=== PATIENT | female | born 1950 | race Caucasian/White ===

== ENCOUNTER → 2017-11-02 | Outpatient (CLI) | payer MEDICARE ==
[~2017-11-02] MED LIST: HCTZ25 PO; LISI-374 PO; LORA-787 PO; OMEP-218 PO; PRE50 PO; TOLT4CAP13 PO
--- NOTE | 2017-11-02 14:37 | RADIOLOGY IMAGING REPORT ---
FACILITY: [facility] PATIENT NAME: Carrie Rojo : 1950 MR: [id number] V: [id number] EXAM DATE: ORDERING PHYSICIAN: HERMELINDO PAREDES TECHNOLOGIST: Location: [facility] [place] Patient: Carrie Rojo : 1950 Visit/Account:[id number] Date of Sevice: 11/02/2017 Exam type: SHOULDER MIN 2 VIEWS RIGHT History: Right shoulder impingement syndrome Comparison: None. Findings: There is moderate to severe joint space narrowing involving the right glenohumeral joint with a large marginal ostomy projecting along the inferior aspect of the right humeral head. Subchondral cystic changes are seen at the right glenoid. There are moderate degenerative changes at the right AC joint . IMPRESSION: 1. Moderate severe osteoarthritic changes involving the right glenohumeral joint Moderate degenerative changes involving the right AC joint Report Dictated By: Simran Salas MD at 11/02/2017 2:32 PM Report E-Signed By: Simran Salas MD at 11/02/2017 2:33 PM WSN:[id number]
== END ==
LOC: RAD 13:43
PROVIDERS: ATTEND Family Medicine
DX: M19.011 Primary osteoarthritis, right shoulder (principal)

== ENCOUNTER → 2017-12-07 | Outpatient (REF) | payer MEDICARE | LOC: ZZSENDIN 10:39 | PROVIDERS: ATTEND Family Medicine | DX: Z01.818 Encounter for other preprocedural examination (principal) | CPT/HCPCS: 81001 ==

== ENCOUNTER 2017-12-28 01:33 | Inpatient (IN) | payer MEDICARE ==
[2017-12-27 15:50] LABS: INR 0.96
[2017-12-28] VITALS (10 sets, daily range): BP systolic 93–141; BP diastolic 50–83
[~2017-12-28] VITALS: Ht 170.2 cm; Wt 82.1 kg
[~2017-12-28 01:33] MED LIST changes: +ASPI81TA94 PO; +GABA-549 PO; +SIMV-49 PO
[2017-12-28] MEDS ORDERED: ONDANSETRON 4 MG/2 ML VIAL ONE (09:52)
[2017-12-28] MEDS ORDERED: DEXAMETHASONE SOD 4 MG/ML VIAL ONE (09:52)
[2017-12-28] MEDS ORDERED: PROPOFOL EMUL(*) 10MG/ML 20 ML 20 ML ONE (09:52)
[2017-12-28] MEDS ORDERED: LIDOCAINE MPF 1% 5 ML VIAL ONE (09:52)
[2017-12-28] MEDS ORDERED: METOCLOPRAMIDE 10 MG/2 ML SDV ONE (09:53)
[2017-12-28] MEDS: NORMOSOL R SOLN(*) 1000 ML BAG 1,000 ML IV PRN ×2 (12:04→14:44)
[2017-12-28] MEDS ORDERED: fentaNYL CITR 250 MCG/5 ML AMP ONE (12:56)
[2017-12-28] MEDS ORDERED: LIDO/EPI 2% MPF 1:200,000 20ML ONE (13:11)
[2017-12-28] MEDS ORDERED: ROPIVACAINE 0.2% 20 ML VIAL ONE (13:11)
[2017-12-28] MEDS ORDERED: BACITRACIN 50000 UNIT/VIAL 100,000 UNIT in NS 0.9% 3000 ML IRRIGATION BAG 3,000 ML IR ONE (14:45)
[2017-12-28] MEDS ORDERED: CLINDAMYCIN(*) 900 MG/NS 50 ML 50 ML IVPB ONE (14:45)
[2017-12-28] MEDS ORDERED: MIDAZOLAM 2 MG/2 ML VIAL IVP ONE (14:45)
[2017-12-28] MEDS ORDERED: LIDOCAINE/SOD BICARB 8.4% SYR ID ONE (14:45)
[2017-12-28] MEDS ORDERED: ROCURONIUM BROM 10 MG/ML 10 ML ONE (14:48)
[2017-12-28] MEDS ORDERED: ePHEDrine 25 MG/5 ML DISP.SYR IVP ONE (16:07)
[2017-12-28] MEDS ORDERED: NS 0.9% IRRIGATION 1000ML PLCT IR ONE (16:13)
[2017-12-28] MEDS ORDERED: SUGAMMADEX SOD 200 MG/2 ML SDV ONE (17:14)
[2017-12-28] MEDS ORDERED: fentaNYL CITR 100 MCG/2 ML AMP ONE ×2 (17:43→18:32)
[2017-12-28] MEDS ORDERED: HYDROmorphone HCL 2 MG/ML SDV IVP PRN (18:20)
[2017-12-28] MEDS ORDERED: PROMETHAZINE 25 MG/ML 1 ML AMP IVP PRN (18:20)
[2017-12-28] MEDS ORDERED: LR 1000 ML BAG 1000 ML IV PRN (18:20)
[2017-12-28] MEDS ORDERED: FLUSH 10 ML SYR IVP PRN (18:20)
[2017-12-28] MEDS ORDERED: diphenhydrAMINE 50 MG/ML VIAL IVP PRN (18:20)
[2017-12-28] MEDS ORDERED: MAGNESIUM CITRATE 300 ML BTL PO PRN (18:20)
[2017-12-28] MEDS ORDERED: MAGNESIUM HYDROXIDE* 30ML UDCP PO PRN (18:20)
[2017-12-28] MEDS ORDERED: diphenhydrAMINE 25 MG CAP PO PRN (18:20)
[2017-12-28] MEDS ORDERED: ZOLPIDEM TARTRATE 5 MG TAB PO PRN (18:20)
[2017-12-28] MEDS ORDERED: ONDANSETRON 4 MG/2 ML VIAL IVP PRN (18:20)
[2017-12-28] MEDS ORDERED: BISACODYL 10 MG SUPP PR PRN (18:20)
[2017-12-28] MEDS ORDERED: GABA-503 PO ×2 (20:12)
[2017-12-28] MEDS ORDERED: LORATADINE 10 MG TAB PO PRN (20:15)
--- NOTE | 2017-12-28 20:20 | Hospitalist Progress Note ---
Subjective Progress Notes Subjective Patient seen post-op. She reports doing well. No CP/SOB/N/V. Reviewed PMHx and medications. Physical Exam Vital Signs Date Time Temp Pulse Resp B/P (MAP) Pulse Ox O2 Delivery O2 Flow Rate FiO2 12/28/17 20:13 90 Room Air 2.5 12/28/17 19:51 98.0 102 18 131/83 (99) Intake and Output 12/29/17 07:00 Intake Total 5400 ml Balance 5400 ml Intake Oral 600 ml IV Total 2450 ml Other 2350 ml # Voids 1 General Appearance: Alert, Awake Cardiovascular: Regular Rate and Rhythm (with soft systolic murmur) Respiratory: Clear to Auscultation Assessment and Plan Problems: (1) S/P shoulder replacement Status: Acute Assessment & Plan: She appears to have done well with OR/anesthesia. As per Dr. Barboza. (2) HTN (hypertension) Status: Chronic Assessment & Plan: Will monitor BPs and resume her lisinopril and HCTZ as needed. At present, her BPs are acceptable. (3) GERD (gastroesophageal reflux disease) Status: Chronic Assessment & Plan: Continue PPI therapy. Exam Sepsis Risk: No Definite Risk KEYLA LINN MD Dec 28, 2017 20:20
[2017-12-28] MEDS: LISINOPRIL 20 MG TAB PO SCH (20:48)
[2017-12-28] MEDS: HYDROCHLOROTHIAZIDE 25 MG TAB PO SCH (20:48)
[2017-12-28] MEDS ORDERED: GABAPENTIN 300 MG CAP PO SCH (21:00)
[2017-12-28] MEDS ORDERED: SIMVASTATIN 20 MG TAB PO SCH (21:00)
--- NOTE | 2017-12-28 22:18 | RADIOLOGY IMAGING REPORT ---
FACILITY: [facility] [place] PATIENT NAME: Carrie Rojo : 1950 MR: [id number] V: [id number] EXAM DATE: ORDERING PHYSICIAN: JEANMARIE PARRY TECHNOLOGIST: Location: [facility] [place] Patient: Carrie Rojo : 1950 Visit/Account:[id number] Date of Sevice: 12/28/2017 ADDENDUM #1 Platelike atelectasis in the right mid to lower lung. Report Dictated By: Darian Holt MD at 12/28/2017 10:16 PM Report E-Signed By: Darian Holt MD at 12/28/2017 10:16 PM ORIGINAL REPORT INDICATION: Postoperative evaluation for right total shoulder arthroplasty. EXAM DATE: 12/28/2017 5:28 PM COMPARISON: 11/02/2017. FINDINGS: Single view of the right shoulder. Mineralization is overall likely normal. No acute alignment abnorm ality or fracture. New right total shoulder arthroplasty. No apparent hardware failure. No acute f racture. Alignment appears grossly normal. Soft tissues are unremarkable. IMPRESSION: Interval right total shoulder arthroplasty with no apparent acute complication. Report Dictated By: Darian Holt MD at 12/28/2017 10:12 PM Report E-Signed By: Darian Holt MD at 12/28/2017 10:15 PM WSN:[id number]
[2017-12-28] MEDS: CLINDAMYCIN 150 MG CAP PO SCH (22:39)
[2017-12-29] VITALS: BP 89/64
--- NOTE | 2017-12-29 04:39 | OPERATIVE REPORT 1 ---
EVENT DATE: December 28, 2017 SURGEON: Mehul Barboza MD ANESTHESIOLOGIST: Dennis Gutierrez MD ANESTHESIA: General LMA. ELECTRIC INSTALLER: ANAND Aguayo PREOPERATIVE DIAGNOSIS Right shoulder osteoarthritis. POSTOPERATIVE DIAGNOSIS Right shoulder osteoarthritis. PROCEDURE PERFORMED Right total shoulder arthroplasty. FINDINGS The patient had a significant amount of arthritic changes associated with the shoulder, but was amenable for a total shoulder replacement. ESTIMATED BLOOD LOSS 150 mL. DRAINS None. COMPLICATIONS None. TOURNIQUET TIME Not applicable. IMPLANTS USED Global Unite standard stem, which was a 10 stem and 10 body, which was press fit , and a 44 x 18 humeral head, and a 44 Fontanelle Peg Global Advantage glenoid. SPECIMENS None. INDICATIONS AND HISTORY This patient is a 67-year-old female that presented to my clinic for evaluation of right shoulder pain and irritation going on for some time. She continued to have pain and irrigation despite conservative management, and so therefore she wanted to go ahead with a total shoulder arthroplasty in the near future. She had failed all conservative management, and so therefore we went over the risks and benefits associated with this, and informed consent was obtained at the last clinic visit. DESCRIPTION OF PROCEDURE The patient was brought into the operating room. She and the procedure were both verified. She was placed supine on the operative table and induced and intubated by Anesthesia. She was then put in a beach chair position, and the right shoulder was then prepped and draped in the usual fashion, and a time out was observed, verifying the correct patient and procedure. After anesthetizing the skin with 2% lidocaine with epinephrine, I was then able to then make a standard deltopectoral approach through the skin and subcutaneous tissue. I identified the cephalic vein. Unfortunately it was very thin, and so therefore it did have to be cauterized, and we did go through the standard deltopectoral aspects to go down to the clavipectoral fascia. Once I got down to the clavipectoral fascia, I then performed a biceps tenodesis in this area by attaching the biceps to the edge of the pec, and then cutting the rest of the biceps and then disposing of it. I then began a subscap peel just medial to the biceps, and I took the subscap all the way down and then tagged it for later repair, and the supraspinatus was still intact, and so therefore we could do a total shoulder replacement. I then was able to dislocate the shoulder after removing the anterior aspect of the subscap in the capsule, and then I was able to put a small akbar in the top part of here, and drilled out into the humeral head, and then used the subsequent reamers from the DePuy [employer] Advantage set to then ream down into the canal. I then found 10 to be the best fit, and so therefore we put the cutting guide and marked the humeral head for cutting. I then cut it without any difficulty, and removed it and measured it on the back table. We then turned attention to the glenoid, where I was able to expose the glenoid 360 degrees around. I was then able to remove the labrum and the rest of the biceps anchor through this area, and then I was able to expose the glenoid with great exposure through the entirety of the 360 degrees around the glenoid itself. I then marked the central portion, and then drilled through the central portion. I then was able to subsequently ream 44 mm. That is what measured best on the glenoid itself, and then got down to a nice concentric bay mills as measured by the jeanne back trials. I then put in the standard gold guide to then drill the subsequent three cementing peg holes, and then was able to irrigate with copious amounts of saline, and then with pulsatile lavage, I then put a CarboJet into each side, and then cemented the glenoid 44 Fontanelle Peg in without any difficulty. Once the cement had hardened, I then turned attention back to the humerus, where I was able to then use the 10 Brosteotome to then cut into the humerus itself. Since we had measured to a 10, I then put in some bone graft, and then was able to put the 10 trial stem in with the 44 x 18 trial head. This was found to have excellent motion associated with it and excellent tension, and so therefore this was the final component chosen. I then removed the trial components, drilled six holes for the Ethibond sutures in order to repair the subscap. I then placed the 10 stem and body with the 44 x 18 head all assembled in one aspect into the body, and then had it press fit with the bone graft. I then attached the subsequent Ethibonds to the subscap and tied the subscap back down, and then closed a little bit of the interval with the superior aspect, as there was a little bit of a gap in this area. I then irrigated with copious amounts of saline using a pulsatile lavage, and then closed the deltopectoral interval using an #0 Stratafix. This was then followed by 2-0 Stratafix in the subcutaneous tissue and then a 4-0 Monocryl in the skin in a subcuticular running stitch. The wound was then anesthetized with ropivacaine, dressed with Steri-Strips, gauze 4x4's and a soft dressing. Patient was put in a simple sling and then transferred to PACU in stable condition. DAVIAN
[2017-12-29 04:49] VITALS: BP 104/56
[2017-12-29] MEDS: CLINDAMYCIN 150 MG CAP PO SCH ×2 (04:51→10:00)
[2017-12-29 07:30] VITALS: BP 99/58
[2017-12-29] MEDS: LISINOPRIL 20 MG TAB PO SCH (09:00)
[2017-12-29] MEDS: HYDROCHLOROTHIAZIDE 25 MG TAB PO SCH (09:00)
[2017-12-29] MEDS ORDERED: GABAPENTIN 300 MG CAP PO SCH (09:00)
[2017-12-29] MEDS ORDERED: ASPIRIN 81 MG CHEW PO SCH (09:00)
[2017-12-29] MEDS ORDERED: PANTOPRAZOLE SOD 40 MG TABEC PO SCH (09:00)
--- NOTE | 2017-12-29 10:08 | Hospitalist Progress Note ---
Subjective Progress Notes Subjective She has no complaints this morning. She states she is ready to go home. Patient Complains of: Cardiovascular: No: Chest Pain Respiratory: No: Shortness of Breath Physical Exam Vital Signs Date Time Temp Pulse Resp B/P (MAP) Pulse Ox O2 Delivery O2 Flow Rate FiO2 12/29/17 08:34 83 12/29/17 08:34 Room Air 12/29/17 07:30 98.3 98 16 99/58 (72) 2.0 Intake and Output 12/30/17 07:00 Intake Total 240 ml Balance 240 ml Intake Oral 240 ml General Appearance: Alert, Awake, No Acute Distress, Afebrile Cardiovascular: Regular Rate and Rhythm Respiratory: No Respiratory Distress, Clear to Auscultation Psych: Alert & Oriented X3, Appropriate Mood & Affect Result Diagram: 12/29/17 0533 Assessment and Plan Problems: (1) S/P shoulder replacement Status: Acute Assessment & Plan: She appears to have done well with surgery. As per Dr. Barboza. (2) HTN (hypertension) Status: Chronic Assessment & Plan: Will monitor BPs and resume her lisinopril and HCTZ as needed. She will check her blood pressure tomorrow morning, if it is above 140 systolic blood pressure she will start her lisinopril one time daily. She will hold her HCTZ for two days, she will continue to monitor her blood pressures and follow up with her primary care. (3) GERD (gastroesophageal reflux disease) Status: Chronic Assessment & Plan: Continue PPI therapy. Copies to: HERMELINDO PAREDES MD Exam Sepsis Risk: No Definite Risk RODRIGO SCANLON Dec 29, 2017 10:08
[2017-12-29] MEDS ORDERED: OXYC-865 PO (10:15)
== END 2017-12-29 10:55 | disposition home or self-care (01) | DRG 483 ==
LOC: OR 01:33 → MED 19:40
PROVIDERS: ADMIT Orthopaedic Surgery; ATTEND Orthopaedic Surgery
PROC: 0RRJ0JZ Replacement of Right Shoulder Joint with Synthetic Substitute, Open Approach (ICD-10-PCS; principal; 2017-12-28 15:38)
DX: M19.011 Primary osteoarthritis, right shoulder (principal); I10 Essential (primary) hypertension; E78.5 Hyperlipidemia, unspecified; K21.9 Gastro-esophageal reflux disease without esophagitis; Z88.0 Allergy status to penicillin; Z88.2 Allergy status to sulfonamides
CPT/HCPCS: 36415; 85014; 85018; 85610; 86850; 86900; 86901; 97165; J1100; J2001; J2250; J2405; J2704; J2765; J2795; J3010; J3490